=== PATIENT | female | born 1995 | race Caucasian/White ===

== ENCOUNTER 2020-09-26 13:25 | Emergency (ER) | payer MEDICAID ==
[~2020-09-26] VITALS: Ht 157.5 cm; Wt 54.5 kg
[~2020-09-26 13:25] MED LIST: NO HOME MEDS
--- NOTE | 2020-09-26 14:38 | NUR ---
Pt going to CT
[2020-09-26 14:57] VITALS: BP 109/81
== END 2020-09-26 14:54 | disposition home or self-care (01) ==
LOC: ER 13:26
DX: S00.83XA Contusion of other part of head, initial encounter (principal); M54.2 Cervicalgia; F15.10 Other stimulant abuse, uncomplicated; F12.10 Cannabis abuse, uncomplicated; Z02.89 Encounter for other administrative examinations; V87.7XXA Person injured in collision between other specified motor vehicles (traffic), initial encounter; Y93.89 Activity, other specified; Y92.89 Other specified places as the place of occurrence of the external cause; Y99.8 Other external cause status
CPT/HCPCS: 70450; 99284

== ENCOUNTER 2021-05-24 14:49 | Emergency (ER) | payer MEDICAID ==
[~2021-05-24] VITALS: Ht 154.9 cm; Wt 50.0 kg
[2021-05-24 15:04] VITALS: BP 120/79
[2021-05-24] MEDS ORDERED: CIPR10DR LEFT EAR (15:11)
== END 2021-05-24 15:39 | disposition home or self-care (01) ==
LOC: ER 14:53
DX: H60.92 Unspecified otitis externa, left ear (principal); F12.90 Cannabis use, unspecified, uncomplicated; F15.90 Other stimulant use, unspecified, uncomplicated; Z79.2 Long term (current) use of antibiotics; Z79.899 Other long term (current) drug therapy
CPT/HCPCS: 99283

== ENCOUNTER 2022-11-11 06:49 | Emergency (ER) | payer MEDICAID, OTHER ==
[~2022-11-11] VITALS: Ht 154.9 cm; Wt 50.0 kg
--- NOTE | 2022-11-11 07:47 | NUR ---
2nd RN ATTEMPTING IV AT THIS TIME. PT IS HARD STICK. PT BG 86. RN WILL PROVIDE JUICE. OFFICER AT BEDSIDE/PT IN HANDCUFFS AT THIS TIME.
--- NOTE | 2022-11-11 08:11 | NUR ---
IV STILL NOT OBTAINED. RN WILL ATTEMPT IV WITH US.
--- NOTE | 2022-11-11 09:13 | NUR ---
RN NOTIFIED DR CASTAÑEDA THAT PT BP 94/61 AND INQ IF BOLUS SHOULD BE ADMIN. PER DR CASTAÑEDA HE WILL NOT ORD BOLUS AT THIS TIME.
[2022-11-11] MEDS ORDERED: normal saline 1000ml 1,000 ML IVB ONE (11:00)
[2022-11-11] MEDS ORDERED: ondansetron/PF 4mg/2ml inj IV ONE (11:00)
[2022-11-11 14:23] LABS: URINE HCG NEGATIVE (NEG)
[2022-11-11 14:24] LABS: BILIRUBIN,URINE NEGATIVE (Neg); CLARITY,URINE SLIGHTLY CLOUDY (Clear); COLOR,URINE YELLOW (Yellow); GLUCOSE, URINE NEGATIVE (Neg); KETONES,URINE NEGATIVE (Neg); LEUKOCYTE ESTERASE ,URINE SMALL (Neg); NITRITES, URINE POSITIVE (Neg); OCCULT BLOOD,URINE NEGATIVE (Neg); PROTEIN,URINE NEGATIVE (Neg); UROBILINOGEN,URINE 0.2 E.U/dL (0.2-1.0)
[2022-11-11 14:29] LABS: UA COLLECTION TYPE CLN CATCH MIDSTREAM
[2022-11-11 14:30] LABS: BACTERIA,URINE 4+ /HPF (Neg); MUCUS STRANDS NONE SEEN /LPF (Neg); RBC,URINE NONE SEEN /HPF (0-2); SQUAMOUS EPITHELIAL CELL,UR FEW /LPF (FEW)
[2022-11-11 14:34] LABS: URINE AMPHETAMINE SCREEN POSITIVE (Neg); URINE BARBITUATE SCREEN NEGATIVE (Neg); URINE BENZODIAZEPINES SCREEN NEGATIVE (Neg); URINE CANNABINOID SCREEN NEGATIVE (Neg); URINE COCAINE SCREEN NEGATIVE (Neg); URINE METHADONE SCREEN NEGATIVE (Neg); URINE OPIATE SCREEN NEGATIVE (Neg); URINE PHENCYCLIDINE SCREEN NEGATIVE (Neg)
[2022-11-11 14:55] LABS: BASOPHILS % (AUTO) 0.4 % (0-1); EOSINOPHILS # (AUTO) 0.1 X10'3 (0-0.9); EOSINOPHILS % (AUTO) 1.5 % (0-6); HEMATOCRIT 36.6 % (35.0-45.0); HEMOGLOBIN 12.3 g/dl (12.0-16.0); LYMPHOCYTES # (AUTO) 1.7 X10'3 (1.1-4.8); LYMPHOCYTES % (AUTO) 17.8 % (21-51); MEAN CORPUSCULAR HEMOGLOBIN 28.6 PG (27.0-31.0); MEAN CORPUSCULAR HGB CONC 33.6 g/dL (33.0-36.5); MEAN CORPUSCULAR VOLUME 85.2 FL (78-98); MEAN PLATELET VOLUME 7.2 FL (7.4-10.4); MONOCYTES # (AUTO) 0.4 X10'3 (0-0.9); MONOCYTES % (AUTO) 4.5 % (2-12); NEUTROPHILS # (AUTO) 7.1 X10'3 (1.8-7.7); NEUTROPHILS % (AUTO) 75.8 % (42-75); PLATELET COUNT 212 X10'3 (140-440); RED BLOOD COUNT 4.29 X10'6 (4.20-5.60); WHITE BLOOD COUNT 9.3 X10'3 (4.5-11.0)
[2022-11-11 15:12] LABS: ALANINE AMINOTRANSFERASE 63 U/L (12-78); ALBUMIN 3.4 G/DL (3.4-5.0); ALBUMIN/GLOBULIN RATIO 1.1 (1.1-1.5); ALKALINE PHOSPHATASE 58 IU/L (46-116); ANION GAP 1 (8-16); ASPARTATE AMINO TRANSFERASE 32 U/L (10-37); BILIRUBIN,TOTAL 0.2 MG/DL (0.1-1.0); BLOOD UREA NITROGEN 11 MG/DL (7-18); BUN/CREATININE RATIO 14.7 (10.0-20.0); CALCIUM 8.3 MG/DL (8.5-10.1); CHLORIDE 108 MMOL/L (99-107); CREATININE 0.75 MG/DL (0.40-0.90); GLUCOSE 101 MG/DL (70-104); POTASSIUM 4.9 MMOL/L (3.5-5.1); SODIUM 138 MMOL/L (135-145); TOTAL CARBON DIOXIDE 29.2 MMOL/L (24-32); TOTAL PROTEIN 6.4 G/DL (6.4-8.2); eCRCL 84 ML/MIN; eGFR > 90 ML/MIN
[2022-11-11] MEDS ORDERED: CEPH-585 PO (15:53)
[2022-11-11] MEDS ORDERED: CefTRIAXone/D5W-Rocephin 1gm 50 ML IV ONE (15:55)
[2022-11-11 16:24] VITALS: BP 95/56; PULSE 66; RESP 13; O2SAT 100
--- NOTE | 2022-11-11 16:31 | NUR ---
RN NOTIFIED DR CAMPBELL THAT PT BP 95/[address] CAMPBELL NO NEED FOR ADDITIONAL BOLUS AND PT MAY BE DC AFTER ANTIBIOTIC INFUSED.
[2022-11-11 16:40] VITALS: TEMP 98.1
--- NOTE | 2022-11-11 17:19 | NUR ---
DISCHARGE ASSESSMENT/IV DISCONTINUED WITHOUT COMPLICAITON/ AND PAPERWORK DONE BY YO TORO.
== END 2022-11-11 17:22 | disposition home or self-care (01) ==
LOC: EEVIPCON 06:50 → ER 06:50
DX: R55 Syncope and collapse (principal); F12.10 Cannabis abuse, uncomplicated; F15.10 Other stimulant abuse, uncomplicated; Z79.899 Other long term (current) drug therapy
CPT/HCPCS: 36415; 80053; 80305; 81001; 81025; 82948; 85025; 87088; 96361; 96365; 96375; 99285; J0696; J2405; J7030